=== PATIENT | female | born 1975 | race Caucasian/White ===

== ENCOUNTER → 2023-11-11 15:06 | Outpatient (REF) | payer BC, SELFPAY | LOC: HWEVLT 15:06 | PROVIDERS: ATTENDING PHYSICIAN Radiology Vascular & Interventional Radiology | DX: I83.893 Varicose veins of bilateral lower extremities with other complications (principal) | CPT/HCPCS: 93970 ==

== ENCOUNTER → 2024-02-09 07:50 | Outpatient (REF) | payer BC, SELFPAY | LOC: HWEVLT 07:50 | PROVIDERS: ATTENDING PHYSICIAN Radiology Vascular & Interventional Radiology | DX: I83.892 Varicose veins of left lower extremity with other complications (principal) | CPT/HCPCS: 36478 ==

== ENCOUNTER → 2024-02-25 15:15 | Outpatient (REF) | payer BC, SELFPAY | LOC: HWEVLT 15:15 | PROVIDERS: ATTENDING PHYSICIAN Radiology Diagnostic Radiology | DX: I83.892 Varicose veins of left lower extremity with other complications (principal) | CPT/HCPCS: 93971 ==

== ENCOUNTER → 2024-08-09 09:34 | Outpatient (REF) | payer BC, SELFPAY | LOC: HWEVLT 09:34 | PROVIDERS: ATTENDING PHYSICIAN Radiology Diagnostic Radiology | DX: I83.892 Varicose veins of left lower extremity with other complications (principal) | CPT/HCPCS: 36478; C1769 ==

== ENCOUNTER → 2024-08-25 11:34 | Outpatient (REF) | payer BC, SELFPAY | LOC: HWEVLT 11:34 | PROVIDERS: ATTENDING PHYSICIAN Radiology Vascular & Interventional Radiology | DX: I83.892 Varicose veins of left lower extremity with other complications (principal) | CPT/HCPCS: 93971 ==

== ENCOUNTER → 2025-01-12 13:11 | Outpatient (REF) | payer BC, SELFPAY | LOC: HWEVLT 13:11 | PROVIDERS: ATTENDING PHYSICIAN Radiology Vascular & Interventional Radiology | DX: I83.892 Varicose veins of left lower extremity with other complications (principal) | CPT/HCPCS: 93971 ==

== ENCOUNTER → 2025-03-02 13:01 | Outpatient (REF) | payer BC, SELFPAY | LOC: HWRAD 13:01 | PROVIDERS: ATTENDING PHYSICIAN Obstetrics & Gynecology Gynecology; FAMILY PHYSICIAN Family Medicine | DX: N92.4 Excessive bleeding in the premenopausal period (principal) | CPT/HCPCS: 76830; 76856 ==

== ENCOUNTER → 2025-06-23 07:30 | Outpatient (REF) | payer BC, SELFPAY | LOC: CLAB 07:30 | PROVIDERS: ATTENDING PHYSICIAN Obstetrics & Gynecology Gynecology | DX: N92.0 Excessive and frequent menstruation with regular cycle (principal) | CPT/HCPCS: 88305 ==

== ENCOUNTER 2025-06-27 07:34 | Emergency (ER) | payer BC, SELFPAY ==
[2025-06-27 07:36] VITALS: BMI 34.1
[2025-06-27 07:37] VITALS: BP 228/108
[2025-06-27 08:07] LABS: Hematocrit 38.5 % (37.0-47.0); Hemoglobin 12.9 g/dL (12.0-16.0); Mean Corp Hgb Conc. 33.5 g/dL (33.0-37.0); Mean Corpuscular Volume 78.1 fL (81.0-99.0); Nucleated Red Blood Cells % 0 %; Platelet Count 292 10^3/uL (130-400); Red Cell Dist. Width 14.2 % (11.5-14.5)
[2025-06-27 08:21] LABS: ALT (SGPT) 24 U/L (0-35); AST (SGOT) 29 U/L (14-36); Albumin 4.8 g/dl (3.5-5.0); Alkaline Phosphatase 68 U/L (38-126); Blood Urea Nitrogen 12 mg/dl (7-17); Calcium 9.7 mg/dl (8.4-10.2); Carbon Dioxide 21 mmol/L (22-30); Chloride 108 mmol/L (98-107); Estimated Creatinine Clearance 108 ml/min; Glucose 116 mg/dl (70-99); Potassium 4.4 mmol/L (3.5-5.1); Sodium 138 mmol/L (135-145); Total Protein 8.0 g/dl (6.3-8.2); eGFR > 60.00
[2025-06-27 08:30] VITALS: BP 193/101
[2025-06-27 08:33] LABS: Troponin I < 0.012 ng/ml
[2025-06-27 09:00] VITALS: BP 190/101
--- NOTE | 2025-06-27 09:01 | ED.GENMED ---
History of Present Illness
General
Chief Complaint: Blood Pressure Problem
Time Seen by Provider: 06/27/25 08:09
History of Present Illness
History of Present Illness:
49-year-old female with newly diagnosed hypertension presenting to the emergency department for elevated blood pressure and heart rate. Patient notes that she had a hysteroscopy and D&C 4 days ago. She was noted to have high blood pressure before
the procedure, as well as after the procedure. Notes that her blood pressure was 190/90 upon discharge after the procedure. She followed up with her primary care doctor the following day and was started on olmesartan. Patient does note a strong
history of anxiety, particularly with taking medications. She was prescribed 20 mg of the olmesartan, however has only been taking 10 mg until she ensures that she is not having side effects with the medications. She notes this morning she was
feeling very anxious, tried into a meditation on a workout harvey. While connecting to the harvey, her watch showed a brief episode of tachycardia which is since resolved. She was concerned regarding her heart rate, which prompted her to come to the
hospital. She denies any present chest pain or difficulty breathing. Denies weakness or numbness to extremities. Denies visual changes she has been taking the olmesartan at night, has had 3 total doses of 10 mg. Denies additional acute medical
complaints
Past History
Past History
ED Past Medical History: Other (Anemia)
ED Past Surgical History: and Orthopedic (Left elbow surgery)
Social History
Tobacco: Non-smoker
Alcohol: None
Drug: None
Living: with family
Phy Exam
Physical Exam
Physical Exam:
General: Well-appearing, no clinical signs of dehydration, nontoxic and in no acute distress
HEENT: protecting airway
Neck: appears supple
CV: Normal heart rate, regular rhythm
Resp: No accessory muscle use, no increased work of breathing, lungs clear to auscultation bilaterally
Abd: No distention
Extremities: No deformities, no swelling
Neuro: alert, no focal neurologic deficit
: deferred
Rectal: deferred
Psych: Normal affect
Skin: Intact
Course
Orders/Labs/Results
Orders:
Orders
06/27/25 07:42
Electrocardiogram (*1) Urgent
Reason for Study: Tachycardia
06/27/25 07:43
EKG- Treatment ONCE
06/27/25 07:44
Complete Blood Count/With Diff Urgent
Comprehensive Metabolic Panel Urgent
Troponin I Urgent
06/27/25 08:28
Olmesartan Medoxomil [Benicar] 10 mg PO NOW STA
Abnormal Lab Results
06/27/25
07:44
MCV 78.1 L fL
(81.0-99.0)
MCH 26.2 L pg
(27.0-31.0)
Neutrophils % 76.2 H %
(42.2-75.2)
Lymphocytes % 16.8 L %
(20.5-51.1)
Chloride 108 H mmol/L
(98-107)
Carbon Dioxide 21 L mmol/L
(22-30)
Glucose 116 H mg/dl
(70-99)
06/27/25 07:44
06/27/25 07:44
Vital Signs
Initial and Last Documented VS:
Initial Vital Signs
Temp Pulse Resp BP Pulse Ox
98.7 F 106 23 228/108 98
06/27/25 07:37 06/27/25 07:37 06/27/25 07:37 06/27/25 07:37 06/27/25 07:37
Last Documented Vital Signs
Temp Pulse Resp BP Pulse Ox
98.7 F 106 23 228/108 98
06/27/25 07:37 06/27/25 07:37 06/27/25 07:37 06/27/25 07:37 06/27/25 07:37
MDM/Problems Addressed
MDM/Problems Addressed:
49-year-old female with new diagnosis of hypertension presenting to the emergency department for episode of tachycardia. Vital signs on arrival significant for high blood pressure.
On exam patient is resting comfortably, no acute distress, slightly anxious. Do suspect proceeding tachycardia could be secondary to known underlying anxiety. Patient reports that she was feeling anxious at the time. EKG obtained on arrival, no
arrhythmia, no present tachycardia, without concern for significant cardiac pathology at this time. Regarding her blood pressure, is markedly elevated, however denying any symptoms, without present concern for hypertensive urgency or emergency.
Plan for screening laboratory analysis to ensure no evidence of endorgan dysfunction. Blood pressure has improved slightly upon arrival without intervention. Patient would prefer to take olmesartan here, rather than new blood pressure medication,
given her anxiety and phobia with medications.
09:10 - Labs are unremarkable. Patient otherwise remained stable, with exception of elevated blood pressure. Again at this time without concern for hypertensive urgency or emergency. Patient has only been on medications for 3 days, at diminished
dose. Ultimately feel stable for discharge, however with continued medication management of her blood pressure. Encouraged full dose of olmesartan and continued follow-up with primary. Return precautions discussed and patient verbalized
understanding
*Pulse Oximetry
SaO2: 98
Oxygen Mode of Delivery: Room air
Patient hypoxic: no
*EKG
Interpreted by ED Provider?: Yes
EKG Intrepretation Date: 06/27/25
EKG Intrepretation Time: 09:04
Interpretation: normal
Comparison EKG: no changes
Heart Rate: 97
Rate: normal
Rhythm: sinus
[place]: normal axis
Interval: normal interval
QRS Pattern: normal QRS
Ischemia: no ischemia
*Critical Care Note
Total Time (30-74mins, 75-104mins- exclusive of procedures): Not Applicable
ED Attending Note
-
Portions of this chart may have been created with voice recognition software.� Occasional wrong word or��sound alike� substitutions may have occurred due to the inherent limitations of voice recognition software.
Discharge Plan
Departure
Prescriptions:
No Action
ferrous sulfate [FeroSul] 325 MG tablet
325 mg PO DAILY
albuterol sulfate 1 PUFF HFA aerosol inhaler
2 puff inhalation R Q4HPRN PRN (Reason: SOB / wheeze) 30 Days Qty: 1 0RF
dexamethasone [Decadron] 6 MG tablet
6 mg PO DAILY 3 Days Qty: 3 0RF
Interventions
Interventions:
*Risk Screen - Suicide Last Done: 06/27/25 08:07
*General Assessment Last Done: 06/27/25 07:41
*Neglect/Abuse Screening Last Done: 06/27/25 08:07
*ED- Fall Risk Assessment Last Done: 06/27/25 07:41
*ED COVID-19 Vaccine History Last Done: 06/27/25 07:41
ED- Cardiac Assessment Last Done: 06/27/25 07:59
ED- Neurological Assessment Last Done: 06/27/25 07:59
ED- Pulmonary Assessment Last Done: 06/27/25 07:59
Discharge Date and Time
Print Language: CONGOLESE
[2025-06-27 09:30] VITALS: BP 188/92
[2025-06-27 10:00] VITALS: BP 186/100
[2025-06-27] MEDS: BENICAR 10 MG PO (10:03)
== END 2025-06-27 10:27 | disposition home or self-care (01) ==
LOC: EMR 07:34
PROVIDERS: Emergency Medicine; EMERGENCY PHYSICIAN Student in an Organized Health Care Education/Training Program; FAMILY PHYSICIAN Family Medicine
DX: I10 Essential (primary) hypertension (principal); Z79.899 Other long term (current) drug therapy
CPT/HCPCS: 99284; 80053; 84484; 85025; 93005